=== PATIENT | male | born 1990 | race Caucasian/White ===

== ENCOUNTER 2024-07-27 09:23 | Emergency (ER) | payer OTHER ==
[2024-07-27 10:08] LABS: BASOPHILS ABSOLUTE AUTO 0.1 x10-3/uL (0.0-0.3); EOSINOPHILS ABSOLUTE AUTO 0.1 x10-3/uL (0.0-0.6)
[2024-07-27 10:17] LABS: BASOPHILS PERCENT AUTO 0.7 % (0.3-3.8); EOSINOPHILS PERCENT AUTO 1.1 % (0.1-6.8); HEMATOCRIT 45.5 % (38.3-50.1); HEMOGLOBIN 15.9 g/dL (12.9-17.7); LYMPHOCYTES ABSOLUTE AUTO 2.1 x10-3/uL (0.5-4.5); MEAN CORPUSCULAR HEMOGLOBIN 30.8 pg (27.0-33.3); MEAN CORPUSCULAR HGB CONC 34.9 g/dL (28.7-35.3); MEAN CORPUSCULAR VOLUME 88.1 fL (80.8-98.7); MEAN PLATELET VOLUME 7.3 fL (6.7-11.0); MONOCYTES ABSOLUTE AUTO 0.9 x10-3/uL (0.0-1.2); MONOCYTES PERCENT AUTO 8.7 % (5.5-15.2); NEUTROPHILS ABSOLUTE AUTO 7.4 x10-3/uL (1.7-6.9); NEUTROPHILS PERCENT AUTO 69.5 % (40.3-71.8); PLATELET COUNT,PLT 337 x10(3)uL (117-477); RED BLOOD CELL COUNT 5.16 x10(6)uL (3.90-5.90); WHITE BLOOD CELL COUNT,WBC 10.6 x10-3/uL (3.2-10.1)
[2024-07-27] MEDS: Ondansetron 4 MG Tab.DIS PO ONE (10:17)
[2024-07-27 10:22] LABS: BLOOD UREA NITROGEN,BUN 11 mg/dL (7-18); CALCIUM 9.1 mg/dL (8.6-10.2); CARBON DIOXIDE,CO2 29 mmol/L (21-32); CHLORIDE,CL 101 mmol/L (100-110); EST CRCL DRUG DOSING (CG) 126.75 mL/min; ESTIMATED GFR 103 mL/min (>60); GLUCOSE RANDOM 103 mg/dL (80-116); POTASSIUM,K 4.3 mmol/L (3.5-5.3); SODIUM,NA 137 mmol/L (135-145)
[2024-07-27 10:27] LABS: ALANINE AMINOTRANSFERASE,ALT 65 U/L (12-36); ALBUMIN 4.2 g/dL (3.5-5.2); ALKALINE PHOSPHATASE 87 IU/L (56-112); ASPARTATE AMNIOTRANSFERASE,AST 29 IU/L (5-25); BILIRUBIN TOTAL 0.5 mg/dL (0.1-1.3); PROTEIN TOTAL,TP 8.6 g/dL (6.0-8.0)
[2024-07-27] MEDS: Sodium Chloride 0.9% 1,000 ML IV ONE (10:45)
[2024-07-27] MEDS: Ketorolac 30 MG/ML SDV IVPUSH ONE (11:05)
[2024-07-27] MEDS: Iopamidol 755 Mg/ML 200 ML Bottle IV ONE (11:33)
[2024-07-27 11:39] LABS: BILIRUBIN,URINE NEGATIVE (NEGATIVE); GLUCOSE,URINE NORMAL (NORMAL); KETONES,URINE NEGATIVE (NEGATIVE); LEUKOCYTE ESTERASE,URINE NEGATIVE (NEGATIVE); NITRITE,URINE NEGATIVE (NEGATIVE); OCCULT BLOOD,URINE NEGATIVE (NEGATIVE); PH,URINE 6.5 (5.0-6.5); PROTEIN,URINE NEGATIVE (NEGATIVE); UROBILINOGEN,URINE NORMAL (NEGATIVE)
[2024-07-27 11:46] LABS: APPEARANCE,URINE CLEAR (CLEAR); BACTERIA,URINE FEW (NS); COLOR,URINE YELLOW (YELLOW); RBC,URINE NOT SEEN (0-5); SQUAMOUS EPITHELIAL CELLS,UR FEW (NS,R,O); WBC,URINE 0-5 (0-5)
[2024-07-27] MEDS: Piperacillin/Tazobactam 4.5 GM in Sodium Chloride 0.9% 100 ML IV ONE (11:50)
== END 2024-07-27 12:30 ==
LOC: FB.ED 09:23
DX: K35.80 Unspecified acute appendicitis (principal); R77.9 Abnormality of plasma protein, unspecified; R59.0 Localized enlarged lymph nodes; R16.1 Splenomegaly, not elsewhere classified; J45.909 Unspecified asthma, uncomplicated; Z87.891 Personal history of nicotine dependence
CPT/HCPCS: 36415; 74177; 80053; 81001; 85025; 86140; 96361; 96365; 96375; 99285; 99285-25; J1885; J2543; J7030; Q0162; Q9967

== ENCOUNTER 2024-08-11 21:43 | Emergency (ER) | payer OTHER, BC ==
[2024-08-11] MEDS ORDERED: Sodium Chloride 0.9% 1,000 ML IV SCH (22:00)
== END 2024-08-11 23:15 | disposition home or self-care (01) ==
LOC: SUPCPDRO 21:43 → FB.ED 21:43
DX: J06.9 Acute upper respiratory infection, unspecified (principal); R21 Rash and other nonspecific skin eruption; T49.95XA Adverse effect of unspecified topical agent, initial encounter
CPT/HCPCS: 87428-QW; 99283